=== PATIENT | male | born 1970 | race African-American/Black ===

== ENCOUNTER 2018-11-09 16:57 | Emergency (ER) | payer OTHER ==
[~2018-11-09] VITALS: Ht 185.4 cm; Wt 95.3 kg
[2018-11-09 19:00] VITALS: BP 132/68
== END 2018-11-09 19:01 | disposition home or self-care (01) ==
LOC: ER 16:57
DX: K64.8 Other hemorrhoids (principal); F17.200 Nicotine dependence, unspecified, uncomplicated